=== PATIENT | male | born 1940 | race Hispanic/Latino ===

== ENCOUNTER 2023-03-08 23:23 | Inpatient (IN) | payer OTHER ==
[2023-03-09] MEDS ORDERED: Metoprolol Tartrate 5 MG/5 ML VIAL ONE (00:02)
[2023-03-09] MEDS ORDERED: dilTIAZem 25 MG/5 ML VIAL ONE (00:07)
[2023-03-09] MEDS ORDERED: Amiodarone 150 MG/3 ML VIAL ONE (00:18)
[2023-03-09 00:30] LABS: #Basophils 0.1 thou/uL (0.0-0.2); #Eosinphils 0.2 thou/uL (0.0-0.7); #Monocytes 0.6 thou/uL (0.11-0.59); %Basophils 0.9 % (0.0-1.0); %Eosinophils 2.8 % (0.0-10.0); %Lymphocytes 33.7 % (21.0-51.0); %Monocytes 10.3 % (0.0-10.0); %Neutrophils 52.1 % (42.0-75.0); Hematocrit 41.4 % (42.0-52.0); Hemoglobin 13.8 g/dL (14.0-18.0); Mean Corpuscular HGB CONC 33.3 g/dL (32.0-36.0); Mean Corpuscular Hemoglobin 32.1 pg (27.0-31.0); Mean Corpuscular Volume 96.3 fl (78.0-98.0); Platelet Count 159 10x3/uL (130-400); RBC Distribution Width 13.2 % (11.5-14.5); White Blood Cell (WBC) Count 5.7 10x3/uL (4.8-10.8)
[2023-03-09 01:10] LABS: ALT (SGPT) 9 U/L (8-55); AST (SGOT) 19 U/L (5-34); Albumin 3.6 g/dL (3.4-4.8); Alkaline Phosphatase 122 U/L (40-110); Anion Gap 14 mmol/L (10-20); BUN (Urea Nitrogen) 8 mg/dL (8.4-25.7); Bilirubin, Total 0.7 mg/dL (0.2-1.2); Calc. Creatinine Clearance 0 mL/min (70-130); Calcium 8.2 mg/dL (7.8-10.44); Carbon Dioxide 16 mmol/L (23-31); Chloride 111 mmol/L (98-107); Estimated GFR 86; Globulin 3.1 g/dL (2.4-3.5); Glucose 185 mg/dL (83-110); Potassium 4.2 mmol/L (3.5-5.1); Protein, Total 6.7 g/dL (5.8-8.1); Sodium 137 mmol/L (136-145)
[2023-03-09 01:29] LABS: Troponin I Less than 0.010 ng/mL (< 0.028)
[2023-03-09 03:04] LABS: SARS-CoV-2 NAA Rapid Test Not Detected (NotDetected)
[2023-03-09] MEDS ORDERED: Dextrose 5% in Water 1,000 ML IV PRN (03:44)
[2023-03-09] MEDS ORDERED: Dextrose 50% Abboject 50 ML SYRINGE SLOW IVP PRN (03:44)
[2023-03-09] MEDS ORDERED: Acetaminophen 325 MG TAB PO PRN (03:44)
[2023-03-09] MEDS ORDERED: Ondansetron PF 4 MG/2 ML Vial IVP PRN (03:44)
[2023-03-09] MEDS ORDERED: Glucagon 1 MG/ML KIT IM PRN (03:44)
[2023-03-09] MEDS ORDERED: Nitroglycerin 0.4 MG TAB (25 Tab Bottle) SL PRN (03:48)
[2023-03-09 04:31] LABS: Troponin I 0.026 ng/mL (< 0.028)
[2023-03-09 04:38] VITALS: BMI 29.7
[2023-03-09] MEDS: Levothyroxine Sodium 100 MCG TAB PO SCH (05:18)
[2023-03-09 07:45] LABS: Troponin I 0.028 ng/mL (< 0.028)
[2023-03-09] MEDS: Polyethylene Glycol 3350 17 GM Packet PO SCH (08:28)
[2023-03-09] MEDS: Flecainide 50 MG TAB PO SCH ×2 (08:29→21:54)
[2023-03-09] MEDS: Carvedilol 6.25 MG TAB PO SCH ×2 (08:29→21:54)
[2023-03-09] MEDS: glipiZIDE 5 MG TAB PO SCH ×2 (08:29→21:54)
[2023-03-09] MEDS: Loratadine 10 MG TAB PO SCH (08:29)
[2023-03-09] MEDS: Lisinopril 20 MG TAB PO SCH (08:29)
[2023-03-09] MEDS: Aspirin 81 mg Enteric Coated Tablet PO SCH (08:30)
[2023-03-09] MEDS: Famotidine 20 MG TAB PO SCH ×2 (08:30→21:54)
[2023-03-09] MEDS: Apixaban 2.5 MG TAB PO SCH ×2 (08:30→21:53)
[2023-03-09] MEDS: HumaLOG 300 UNITS/3 ML VIAL SC PRN (12:04)
[2023-03-09] MEDS: hydrALAZINE 20 MG/ML VIAL SLOW IVP PRN (13:21)
[2023-03-09] MEDS: Atorvastatin Calcium 40 MG TAB PO SCH (21:53)
[2023-03-09] MEDS: Terazosin HCl 1 MG CAP PO SCH (21:54)
[2023-03-10] MEDS ORDERED: Calcium Carbonate 500 MG ChewTAB PO PRN (02:58)
[2023-03-10] MEDS: Levothyroxine Sodium 100 MCG TAB PO SCH (04:32)
[2023-03-10 04:57] LABS: #Eosinphils 0.2 thou/uL (0.0-0.7); #Monocytes 0.6 thou/uL (0.11-0.59); %Basophils 0.5 % (0.0-1.0); %Eosinophils 2.6 % (0.0-10.0); %Lymphocytes 34.3 % (21.0-51.0); %Monocytes 10.3 % (0.0-10.0); Hematocrit 39.1 % (42.0-52.0); Hemoglobin 13.7 g/dL (14.0-18.0); Mean Corpuscular Volume 88.5 fl (78.0-98.0); Mean Platelet Volume 11.8 fL (7.4-10.4); Platelet Count 156 10x3/uL (130-400); Red Blood Cell (RBC) Count 4.42 mill/uL (4.70-6.10); White Blood Cell (WBC) Count 5.8 10x3/uL (4.8-10.8)
[2023-03-10 05:21] LABS: Anion Gap 13 mmol/L (10-20); BUN (Urea Nitrogen) 9 mg/dL (8.4-25.7); Calc. Creatinine Clearance 85 mL/min (70-130); Carbon Dioxide 24 mmol/L (23-31); Chloride 105 mmol/L (98-107); Estimated GFR 87; Glucose 146 mg/dL (83-110); Potassium 3.5 mmol/L (3.5-5.1); Sodium 138 mmol/L (136-145)
[2023-03-10] MEDS: Apixaban 2.5 MG TAB PO SCH (11:41)
[2023-03-10] MEDS: Aspirin 81 mg Enteric Coated Tablet PO SCH (11:41)
[2023-03-10] MEDS: Lisinopril 20 MG TAB PO SCH (11:41)
[2023-03-10] MEDS: Flecainide 50 MG TAB PO SCH ×2 (11:41→21:51)
[2023-03-10] MEDS: Famotidine 20 MG TAB PO SCH ×2 (11:41→21:56)
[2023-03-10] MEDS: Carvedilol 6.25 MG TAB PO SCH ×2 (11:41→21:51)
[2023-03-10] MEDS: glipiZIDE 5 MG TAB PO SCH ×2 (11:41→21:55)
[2023-03-10] MEDS: Polyethylene Glycol 3350 17 GM Packet PO SCH (11:42)
[2023-03-10] MEDS: Loratadine 10 MG TAB PO SCH (11:42)
[2023-03-10] MEDS: hydrALAZINE 20 MG/ML VIAL SLOW IVP PRN ×2 (12:49→17:43)
[2023-03-10] MEDS ORDERED: Communication Order-Pharmacy FS SCH ×2 (19:14→19:30)
[2023-03-10 19:49] LABS: Hematocrit 44.3 % (42.0-52.0); Hemoglobin 15.5 g/dL (14.0-18.0); Platelet Count 170 10x3/uL (130-400)
[2023-03-10] MEDS: Terazosin HCl 1 MG CAP PO SCH (21:50)
[2023-03-10] MEDS: Amiodarone 200 MG TAB PO SCH (21:54)
[2023-03-10] MEDS: Atorvastatin Calcium 40 MG TAB PO SCH (21:54)
[2023-03-11 05:32] LABS: THC/Cannabinoid Screen Not Detected (NotDetected)
[2023-03-11 05:33] LABS: Cocaine Metabolite Screen Not Detected (NotDetected); Methamphetamine Not Detected (NotDetected); Opiate Screen Not Detected (NotDetected)
[2023-03-11 05:34] LABS: Amphetamine Not Detected (NotDetected); Barbiturates Screen Not Detected (NotDetected); Benzodiazepine Screen Not Detected (NotDetected); Methadone Not Detected (NotDetected); Oxycodone Screen Not Detected (NotDetected); Phencyclidine (PCP) Not Detected (NotDetected); Tricyclic Screen Not Detected (NotDetected)
[2023-03-11] MEDS: Levothyroxine Sodium 100 MCG TAB PO SCH (05:47)
[2023-03-11 06:47] LABS: Cardiac Risk 2.8 (Less than 4.5)
[2023-03-11] MEDS: Carvedilol 6.25 MG TAB PO SCH ×2 (08:32→21:24)
[2023-03-11] MEDS: Polyethylene Glycol 3350 17 GM Packet PO SCH (08:32)
[2023-03-11] MEDS: Lisinopril 20 MG TAB PO SCH (08:33)
[2023-03-11] MEDS: glipiZIDE 5 MG TAB PO SCH ×2 (08:33→21:24)
[2023-03-11] MEDS: Amiodarone 200 MG TAB PO SCH ×2 (08:33→21:23)
[2023-03-11] MEDS: Flecainide 50 MG TAB PO SCH ×2 (08:33→21:24)
[2023-03-11] MEDS: Loratadine 10 MG TAB PO SCH (08:33)
[2023-03-11] MEDS: Aspirin 81 mg Enteric Coated Tablet PO SCH (08:33)
[2023-03-11] MEDS: Famotidine 20 MG TAB PO SCH ×2 (08:33→21:24)
[2023-03-11] MEDS: HumaLOG 300 UNITS/3 ML VIAL SC PRN (12:54)
[2023-03-11] MEDS: Terazosin HCl 1 MG CAP PO SCH (21:23)
[2023-03-11] MEDS: Atorvastatin Calcium 40 MG TAB PO SCH (21:23)
[2023-03-12] MEDS ORDERED: Sodium Chloride 0.9% 1,000 ML IV SCH ×2 (06:00→10:51)
[2023-03-12] MEDS: Levothyroxine Sodium 100 MCG TAB PO SCH (06:01)
[2023-03-12] MEDS: Lisinopril 20 MG TAB PO SCH (06:01)
[2023-03-12] MEDS: Loratadine 10 MG TAB PO SCH (06:02)
[2023-03-12] MEDS: Carvedilol 6.25 MG TAB PO SCH ×2 (06:02→20:45)
[2023-03-12] MEDS: Amiodarone 200 MG TAB PO SCH ×2 (06:02→20:46)
[2023-03-12] MEDS: Famotidine 20 MG TAB PO SCH ×2 (06:03→20:45)
[2023-03-12] MEDS: Flecainide 50 MG TAB PO SCH (06:03)
[2023-03-12] MEDS: Aspirin 81 mg Enteric Coated Tablet PO SCH (06:03)
[2023-03-12] MEDS: Polyethylene Glycol 3350 17 GM Packet PO SCH (07:51)
[2023-03-12] MEDS ORDERED: FLU VACC QS2023(65UP)/MF59C/PF 60 MCG/0.5 ML SYRINGE IM ONE (09:00)
[2023-03-12] MEDS ORDERED: Nitroglycerin 50 MG/250 ML BOT 0 ML ONE (09:10)
[2023-03-12] MEDS ORDERED: Heparin 10,000 UNITS/ 10 ML VIAL ONE (09:10)
[2023-03-12] MEDS ORDERED: Lidocaine 1% (PF) 30 ML VIAL ONE (09:10)
[2023-03-12] MEDS ORDERED: fentaNYL 50 mcg/mL 1 mL Vial ONE (09:11)
[2023-03-12] MEDS ORDERED: Midazolam HCl 2 mg/2 ml Vial ONE (09:11)
[2023-03-12] MEDS ORDERED: Protamine Sulfate 50 MG/5 ML VIAL ONE (10:36)
[2023-03-12] MEDS ORDERED: Acetaminophen/Codeine 30-300mg Tablet PO PRN ×2 (10:50)
[2023-03-12] MEDS ORDERED: Sodium Chloride 0.9% 200 ML IV PRN (10:50)
[2023-03-12] MEDS ORDERED: Nitroglycerin 0.4 MG TAB (25 Tab Bottle) SL PRN (10:50)
[2023-03-12] MEDS ORDERED: Iopamidol 370 76% 100 ML VIAL ONE (13:49)
[2023-03-12] MEDS: Atorvastatin Calcium 40 MG TAB PO SCH (20:45)
[2023-03-12] MEDS: Terazosin HCl 1 MG CAP PO SCH (20:45)
[2023-03-13] MEDS ORDERED: diphenhydrAMINE 25 MG CAP PO PRN (02:06)
[2023-03-13 04:45] LABS: Hematocrit 36.4 % (42.0-52.0); Hemoglobin 12.6 g/dL (14.0-18.0); Platelet Count 140 10x3/uL (130-400)
[2023-03-13] MEDS: Levothyroxine Sodium 100 MCG TAB PO SCH (05:19)
[2023-03-13] MEDS: Carvedilol 6.25 MG TAB PO SCH (09:45)
[2023-03-13] MEDS: Aspirin 81 mg Enteric Coated Tablet PO SCH (09:45)
[2023-03-13] MEDS: Polyethylene Glycol 3350 17 GM Packet PO SCH (09:45)
[2023-03-13] MEDS: Amiodarone 200 MG TAB PO SCH (09:46)
[2023-03-13] MEDS: Famotidine 20 MG TAB PO SCH (09:46)
[2023-03-13] MEDS: Lisinopril 20 MG TAB PO SCH (09:46)
[2023-03-13 11:34] VITALS: BP 119/58; TEMP 98.2
[2023-03-14] MEDS ORDERED: Apixaban 5 MG TAB PO SCH (09:00)
[2023-03-26] MEDS ORDERED: Amiodarone 200 MG TAB PO SCH (09:00)
[2023-04-09] MEDS ORDERED: Amiodarone 200 MG TAB PO SCH (09:00)
[2023-04-10] MEDS ORDERED: ADENOSINE 60 MG/20 ML SDV ONE (09:34)
== END 2023-03-13 13:50 | disposition home or self-care (01) | DRG 287 ==
LOC: ERS 23:23 → EEVIPCON 23:23 → 2SW 03-09 03:23 → OBSVTOIN 03-10 15:05
PROVIDERS: ADMIT Student in an Organized Health Care Education/Training Program; ATTEND Family Medicine
PROC: 4A023N7 Measurement of Cardiac Sampling and Pressure, Left Heart, Percutaneous Approach (ICD-10-PCS; principal; 2023-03-12)
PROC: B2111ZZ Fluoroscopy of Multiple Coronary Arteries using Low Osmolar Contrast (ICD-10-PCS; 2023-03-12)
PROC: B2151ZZ Fluoroscopy of Left Heart using Low Osmolar Contrast (ICD-10-PCS; 2023-03-12)
DX: I48.0 Paroxysmal atrial fibrillation (principal); I50.32 Chronic diastolic (congestive) heart failure; I11.0 Hypertensive heart disease with heart failure; D12.6 Benign neoplasm of colon, unspecified; I25.10 Atherosclerotic heart disease of native coronary artery without angina pectoris; E03.9 Hypothyroidism, unspecified; K21.9 Gastro-esophageal reflux disease without esophagitis; Z79.82 Long term (current) use of aspirin; Z79.899 Other long term (current) drug therapy; Z79.01 Long term (current) use of anticoagulants; Z79.84 Long term (current) use of oral hypoglycemic drugs; Z20.822 Contact with and (suspected) exposure to COVID-19; E11.9 Type 2 diabetes mellitus without complications; N40.0 Benign prostatic hyperplasia without lower urinary tract symptoms; E78.00 Pure hypercholesterolemia, unspecified; M19.90 Unspecified osteoarthritis, unspecified site; F17.210 Nicotine dependence, cigarettes, uncomplicated; Z98.890 Other specified postprocedural states; Z79.4 Long term (current) use of insulin
CPT/HCPCS: 36415; 36416; 71045; 78452; 80048; 80053; 80061; 80306; 83735; 84484; 85014; 85018; 85025; 85049; 85347; 93005; 93017; 93458; 96361; 96374; 96375; 96376; 99152; A9500; C1769; G0378; J0153; J0282; J0360; J1644; J1650; J1815; J2001; J2250; J2720; J3010; J7050; Q9967; U0002